=== PATIENT | male | born 1995 ===

== ENCOUNTER 2024-06-11 21:37 | Emergency (ER) | payer MEDICAID ==
[~2024-06-11] VITALS: Ht 172.7 cm; Wt 90.6 kg
[2024-06-12 01:35] VITALS: BP 115/90; PULSE 70; RESP 18; TEMP 98.6; O2SAT 98
== END 2024-06-12 01:40 | disposition home or self-care (01) ==
LOC: ER 21:38
DX: S01.411A Laceration without foreign body of right cheek and temporomandibular area, initial encounter (principal); S06.0X0A Concussion without loss of consciousness, initial encounter; W01.0XXA Fall on same level from slipping, tripping and stumbling without subsequent striking against object, initial encounter; Y93.89 Activity, other specified; Y92.89 Other specified places as the place of occurrence of the external cause; Y99.8 Other external cause status
CPT/HCPCS: 12011; 70450; 99284; J7030; A6449